=== PATIENT | male | born 1990 | race Caucasian/White ===

== ENCOUNTER 2024-05-10 22:54 | Emergency (ER) | payer SELFPAY ==
[~2024-05-10] VITALS: Ht 175.3 cm; Wt 95.3 kg
[2024-05-10 23:05] VITALS: PULSE 125; RESP 24; TEMP 97.4; O2SAT 100
[2024-05-10] MEDS ORDERED: ULTRAM 50MG50 MG PO (23:25)
== END 2024-05-10 23:35 | disposition home or self-care (01) ==
LOC: ER 23:02
DX: S43.085A Other dislocation of left shoulder joint, initial encounter (principal); X50.1XXA Overexertion from prolonged static or awkward postures, initial encounter; Y92.89 Other specified places as the place of occurrence of the external cause
CPT/HCPCS: 99283